=== PATIENT | male | born 1990 | race Two or more races ===

== ENCOUNTER 2019-11-20 22:42 | Outpatient (CLI) | payer SELFPAY | END 2019-11-20 22:43 | disposition critical access hospital (66) | LOC: EMS 22:42 | PROVIDERS: ATTEND Surgery | DX: R09.89 Other specified symptoms and signs involving the circulatory and respiratory systems (principal); R20.2 Paresthesia of skin | CPT/HCPCS: A0425; A0429 ==

== ENCOUNTER 2019-11-20 22:44 | Emergency (ER) | payer SELFPAY ==
[2019-11-20 23:01] VITALS: BP 127/73
--- NOTE | 2019-11-20 23:06 | ED Physician Documentation ---
History of Present Illness - Stated complaint Stated Complaint: PANICK ATTACK - Chief complaint Chief Complaint: MHE - History obtained from History obtained from: Patient (Patient is a 29-year-old male who presents via EMS with his mother with a chief complaint of having a panic attack patient reports that he feels like his symptoms are resolved now this is his third visit in the last5 days for similar symptoms he was seen in outside department where he he reports he had negative chest x-ray blood work and EKG he actually was seen earlier today by his primary care provider and reports that he had again had a negative EKG negative chest x-ray the patient reports he was driving and started to have severe anxiety and started hyperventilating he then pulled over and called his mother they called 911 and the patient arrived to be he denies any history of SD or stroke or pulmonary embolism or DVT or pneumothorax. He denies any homicidal or suicidal thoughts. Denies any fevers, headache, neck pain, rashes denies any history of IV drug abuse. Denies any excessive alcohol use does admit to occasional marijuana use.), Family Review of Systems Constitutional: reports: Reviewed and negative Eyes: reports: Reviewed and negative Ears: reports: Reviewed and negative Nose: reports: Reviewed and negative Throat: reports: Reviewed and negative Cardiac: reports: Palpitations Respiratory: reports: Reviewed and negative GI: reports: Reviewed and negative : reports: Reviewed and negative Skin: reports: Reviewed and negative Musculoskeletal: reports: Reviewed and negative Neurologic: reports: Reviewed and negative Psychiatric: reports: Anxiety Endocrine: reports: Reviewed and negative Immunocompromised: reports: Reviewed and negative PD ED PE NORMAL - Vitals Vital signs reviewed: Yes - General General: Alert and oriented X 3, No acute distress, Well developed/nourished - HEENT HEENT: PERRL, Moist mucous membranes, Pharynx benign - Neck Neck: Supple, no meningeal sign, No adenopathy, Thyroid normal, No JVD, No bruit - Cardiac Cardiac: RRR, No murmur, Strong equal pulses - Respiratory Respiratory: No respiratory distress, Clear bilaterally, Other (Breath sounds Are present bilaterally, no wheezes, no line, no use of accessory muscle use.) - Abdomen Abdomen: Normal bowel sounds, Soft, Non tender, Non distended - Back Back: No CVA TTP, No spinal TTP - Derm Derm: Normal color, Warm and dry, No rash - Extremities Extremities: No deformity, No tenderness to palpate, Normal ROM s pain, No edema, No calf tenderness / cord - Neuro Neuro: Alert and oriented X 3, 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, No motor deficit, No sensory deficit, Normal speech - Psych Psych: Other (Anxious) Results - Vitals Vitals: Vital Signs - 24 hr 11/20/19 22:54 Temperature 36.3 C L Heart Rate 66 Respiratory 22 Rate Blood Pressure 127/73 O2 Saturation 100 Oxygen O2 Source Room air PD MEDICAL DECISION MAKING - ED course Complexity details: considered differential (Panic attack), d/w patient (Patient is anxious appearing on exam he reports in the last week it to different medical facilities has had 2- chest x-rays and 2- EKGs as well as negative blood work he has breath sounds are present bilaterally trachea is midline history and exam show no signs of pneumothorax or SD or malignant arrhythmias. He admits to having anxiety and panic attacks will treat him with 1 dose of anxiolytics here in the emergency department and encouraged him to follow-up with a primary care provider tomorrow for further evaluation and treatment plan.), d/w family Departure - Departure Disposition: 01 Home, Self Care Clinical Impression: Panic attack Condition: Stable Instructions: ED Panic Attack Follow-Up: your, doctor [Other] - Tomorrow Comments: follow up with your primary care provider tomorrow. Discharge Date/Time: 11/20/19 23:35
[2019-11-20] MEDS ORDERED: LORazepam 1 MG TABLET PO STA (23:16)
== END 2019-11-20 23:35 | disposition home or self-care (01) ==
LOC: ED 22:44
DX: F41.0 Panic disorder [episodic paroxysmal anxiety] (principal)
CPT/HCPCS: 99283; J8499